=== PATIENT | male | born 1970 | race African-American/Black ===

== ENCOUNTER 2018-04-24 10:17 | Emergency (ER) | payer MEDICAID, OTHER ==
[~2018-04-24] VITALS: Ht 175.3 cm; Wt 78.0 kg
[2018-04-24] MEDS ORDERED: FLUORESCEIN SODIUM 1 MG STRIP OD ONE (12:30)
[2018-04-24] MEDS ORDERED: PROPARACAINE HCL 0.5% 15 ML OPHTHALMIC SOLUTION OS ONE (12:30)
[2018-04-24] MEDS ORDERED: ERYTHROMYCIN 0.5% 3.5 GM TUBE OPHTHALMIC OINTMENT OS ONE (13:00)
[2018-04-24 13:08] VITALS: BP 126/77
== END 2018-04-24 13:13 | disposition home or self-care (01) ==
LOC: EMS 10:18
DX: H57.89 Other specified disorders of eye and adnexa (principal)